=== PATIENT | female | born 1985 | race Caucasian/White ===

== ENCOUNTER 2018-09-28 11:07 | Day surgery (SDC) | payer BC ==
[2018-09-27 09:13] LABS: BASOPHILS % (AUTO) 2 % (0-1); EOSINOPHILS # (AUTO) 0.47 x10^3/uL (0-0.4); EOSINOPHILS % (AUTO) 8 % (1-7); LYMPHOCYTES # (AUTO) 1.43 x10^3/uL (1-3.4); LYMPHOCYTES % (AUTO) 24 % (22-44); MD NO; MEAN CORPUSCULAR HEMOGLOBIN 30.2 pg (27.0-34.8); MEAN CORPUSCULAR HGB CONC 33.8 g/dL (32.4-35.8); MEAN CORPUSCULAR VOLUME 89.4 fL (80-100); MEAN PLATELET VOLUME 8.3 fL (7.4-10.4); MONOCYTES # (AUTO) 0.66 x10^3/uL (0.2-0.8); MONOCYTES % (AUTO) 11 % (2-9); NEUTROPHILS # (AUTO) 3.21 x10^3/uL (1.8-6.8); NEUTROPHILS % (AUTO) 55 % (42-75); PLATELET COUNT 296 x10^3/uL (130-400); RED BLOOD COUNT 4.66 x10^6/uL (3.82-5.3); RED CELL DISTRIBUTION WIDTH 12.7 % (9.6-15.2)
[~2018-09-28] VITALS: Ht 172.7 cm; Wt 58.2 kg
[~2018-09-28 11:07] MED LIST: ACET-1757 PO; COLLAGEN PO; FEXO180T15 PO; PROTEIN PO
[2018-09-28 11:33] VITALS: BP 127/83
[2018-09-28] MEDS ORDERED: LACTATED RINGERS 1,000 ML IV SCH (11:36)
[2018-09-28] MEDS ORDERED: FENTANYL PF 250 MCG/5ML ONE (11:42)
[2018-09-28] MEDS ORDERED: MIDAZOLAM 1 MG/ML, 2ML ONE (11:42)
[2018-09-28 11:45] LABS: HCG UR SG 1.022 (1.003-1.030)
[2018-09-28] MEDS ORDERED: ROPIvacaine/PF 0.2%, 20 ML ONE ×2 (11:47)
[2018-09-28] MEDS ORDERED: ONDANSETRON 2MG/ML, 2ML ONE (11:49)
[2018-09-28] MEDS ORDERED: ROCURONIUM 10MG/ML,5ML ONE (11:49)
[2018-09-28] MEDS ORDERED: GLYCOPYRROLATE 0.2MG/1ML, 5ML ONE (11:49)
[2018-09-28] MEDS ORDERED: CEFAZOLIN 1,000 MG ONE (11:49)
[2018-09-28] MEDS ORDERED: NEOSTIGMINE 1 MG/ML, 10ML ONE (11:49)
[2018-09-28] MEDS ORDERED: PROPOFOL 10 MG/ML, 20ML ONE (11:49)
[2018-09-28] MEDS ORDERED: DEXAMETHASONE 4 MG/ML, 1ML ONE (11:49)
[2018-09-28] MEDS ORDERED: GABAPENTIN 300 MG CAPSULE PO ONE (12:00)
[2018-09-28] MEDS ORDERED: ACETAMINOPHEN 500 MG TABLET PO ONE (12:00)
[2018-09-28] MEDS ORDERED: SCOPOLAMINE PATCH, 1.5MG PATCH.TD72 TD ONE (12:00)
[2018-09-28] MEDS ORDERED: BUPIVACAINE/PF-EPI 0.5% 1:200K ONE (12:41)
[2018-09-28] MEDS ORDERED: PROMETHAZINE 25 MG/ML, 1ML IM PRN ×2 (13:00)
[2018-09-28] MEDS ORDERED: ONDANSETRON 2MG/ML, 2ML IV PRN (13:00)
[2018-09-28] MEDS ORDERED: ONDANSETRON ODT 8 MG PO PRN (13:00)
[2018-09-28] MEDS ORDERED: PROMETHAZINE 25 MG SUPP PR PRN (13:00)
[2018-09-28] MEDS ORDERED: LABETALOL 5MG/ML, 20ML IV PRN (13:00)
[2018-09-28] MEDS ORDERED: HYDROmorphone 2 MG/ML, 1ML IVPush PRN (13:00)
[2018-09-28] MEDS ORDERED: PROMETHAZINE 25 MG/ML, 1ML IV PRN (13:00)
[2018-09-28] MEDS ORDERED: HALOPERIDOL 5 MG/ML IV PRN (13:00)
[2018-09-28] MEDS ORDERED: MEPERIDINE/PF 25MG/0.5ML IVPush PRN (13:00)
[2018-09-28] MEDS ORDERED: PROMETHAZINE 12.5 MG SUPP PR PRN (13:00)
[2018-09-28] MEDS ORDERED: hydrALAzine 20 MG/ML, 1ML IV PRN (13:00)
[2018-09-28] MEDS ORDERED: OXYcodone 5 MG/5 ML ORAL.SOL UDC PO PRN (13:00)
[2018-09-28] MEDS ORDERED: FENTANYL PF 100 MCG/2ML IV PRN (13:00)
[2018-09-28] MEDS ORDERED: MORPHINE SULFATE 4 MG/ML, 1ML IVPush PRN (13:00)
[2018-09-28] MEDS ORDERED: MEPERIDINE/PF 25MG/ML,1ML ONE (15:32)
== END 2018-09-28 17:40 | disposition home or self-care (01) ==
LOC: OUT 11:07
PROVIDERS: ATTEND Orthopaedic Surgery
DX: S92.131A Displaced fracture of posterior process of right talus, initial encounter for closed fracture (principal); J45.909 Unspecified asthma, uncomplicated; Z72.89 Other problems related to lifestyle; X58.XXXA Exposure to other specified factors, initial encounter; Y93.89 Activity, other specified; Y92.89 Other specified places as the place of occurrence of the external cause; Y99.8 Other external cause status
CPT/HCPCS: 28445; 36415; 64445; 64447; 73600; 76000; 81025; 85025; C1713; J0690; J1100; J2175; J2250; J2405; J2704; J2710; J2795; J3010; J7120